=== PATIENT | male | born 1970 | race Caucasian/White ===

== ENCOUNTER 2022-09-29 15:01 | Outpatient (REF) | payer OTHER, SELFPAY ==
[2022-10-01 14:07] LABS: Varicella IgG Antibody Positive (See Note)
[2022-10-01 14:15] LABS: Mumps Antibody IgG Positive (See Note); Rubella IgG Ab (UVM) Positive (See Note)
[2022-10-01 15:17] LABS: Measles IgG Antibody Equivocal (See Note)
== END 2022-09-29 15:02 | disposition home or self-care (01) ==
LOC: NCHCN 15:01
PROVIDERS: PCP Registered Nurse; Visit Provider Registered Nurse
DX: Z11.59 Encounter for screening for other viral diseases (principal); Z01.84 Encounter for antibody response examination
CPT/HCPCS: 86787; 86735; 86762; 86765